=== PATIENT | male | born 1980 | race Hispanic/Latino ===

== ENCOUNTER 2022-11-04 05:04 | Inpatient (IN) | payer OTHER ==
[~2022-11-04] VITALS: Ht 185.4 cm; Wt 82.1 kg
[2022-11-04 05:39] LABS: BASOPHILS % (AUTO) 0.4 % (0.0-5.0); EOSINOPHILS % (AUTO) 2.2 % (0.0-8.0); HEMATOCRIT 40.2 % (42-54); LYMPHOCYTES % (AUTO) 32.4 % (21.0-51.0); MEAN CORPUSCULAR HEMOGLOBIN 29.5 pg (27.0-33.0); MEAN CORPUSCULAR HGB CONC 34.3 g/dL (32.0-36.0); MEAN CORPUSCULAR VOLUME 85.9 fL (79-99); MONOCYTES % (AUTO) 6.3 % (3.0-13.0); NEUTROPHILS % (AUTO) 58.2 % (40.0-77.0); PLATELET COUNT (AUTO) 292 K/uL (130-400); RED BLOOD CELL COUNT(AUTO) 4.68 MIL/uL (4.50-6.20); RED CELL DISTRIBUTION WIDTH 13.8 % (11.0-15.5); WHITE BLOOD COUNT (AUTO) 7.6 K/uL (4.8-10.8)
[2022-11-04 05:45] LABS: CREATININE 0.7 mg/dL (0.5-1.5); POTASSIUM 3.2 mmol/L (3.5-5.1)
[2022-11-04 05:52] LABS: ALBUMIN 3.2 g/dL (3.5-5.0); TOTAL PROTEIN, SERUM 5.7 g/dL (6.0-8.3)
[2022-11-04] MEDS ORDERED: IBUP-1493 PO (06:14)
[2022-11-04] MEDS ORDERED: ACETAMINOPHEN 325 MG TAB PO ONE (07:30)
[2022-11-04] MEDS ORDERED: POTASSIUM BICARB/CIT AC 25 MEQ TABLET.EFF PO ONE (07:30)
[2022-11-04] MEDS ORDERED: HYDROXYZINE 25 MG TABLET PO ONE (07:30)
[2022-11-04] MEDS ORDERED: ASPIRIN 325MG TAB PO ONE (07:30)
[2022-11-04] MEDS ORDERED: NITROGLYCERIN 0.4 MG SL TAB SL PRN ×2 (07:30→12:00)
[2022-11-04 07:49] LABS: AMPHET/METH SCREEN,URINE NEGATIVE (NEGATIVE); BARBITURATE SCREEN, URINE NEGATIVE (NEGATIVE); BENZODIAZEPINES SCREEN,URINE NEGATIVE (NEGATIVE); CANNABINOID SCREEN,URINE POSITIVE (NEGATIVE); COCAINE SCREEN,URINE NEGATIVE (NEGATIVE); OPIATE SCREEN,URINE NEGATIVE (NEGATIVE); PHENCYCLIDINE SCREEN,URINE NEGATIVE (NEGATIVE)
[2022-11-04 08:11] LABS: APPEARANCE,URINE CLEAR (CLEAR); BILIRUBIN,URINE NEGATIVE (NEGATIVE); COLOR,URINE LIGHT-YELLOW (YELLOW); GLUCOSE, URINE (UA) NEGATIVE (NEGATIVE); KETONES,URINE NEGATIVE (NEGATIVE); LEUKOCYTE ESTERASE ,URINE NEGATIVE Leu/uL (NEGATIVE); NITRATE,URINE NEGATIVE (NEGATIVE); OCCULT BLOOD,URINE NEGATIVE (NEGATIVE); PH,URINE 6.5 (5.0-8.0); PROTEIN,URINE NEGATIVE (NEGATIVE); UROBILINOGEN,URINE 0.2 mg/dL (0.2-1.0)
[2022-11-04] MEDS ORDERED: NITROGLYCERIN 1GM OINT 1 INCH/1GM TD ONE (08:30)
[2022-11-04] MEDS ORDERED: ENOXAPARIN SODIUM 80 MG/0.8 ML SQ ONE (08:30)
[2022-11-04] MEDS ORDERED: HYDRALAZINE 25MG TABLET PO PRN (12:00)
[2022-11-04] MEDS ORDERED: GUAIFENESIN SUGAR-FREE 100 MG/5 ML UDCUP PO PRN (12:00)
[2022-11-04] MEDS ORDERED: POTASSIUM CHLORIDE 10% ELIXIR 20 MEQ/15 ML UDCUP PO PRN (12:00)
[2022-11-04] MEDS ORDERED: ALBUTEROL 0.083% 2.5 MG/3 ML INH IH PRN (12:00)
[2022-11-04] MEDS ORDERED: DiphenhydrAMINE HCL 50 MG/ML VIAL IV PRN (12:00)
[2022-11-04] MEDS ORDERED: POLYETHYLENE GLYCOL 3350 17 GM POWD.PACK PO PRN (12:00)
[2022-11-04] MEDS ORDERED: KCL 20 MEQ ERTAB PO PRN (12:00)
[2022-11-04] MEDS ORDERED: POTASSIUM CHLORIDE 20MEQ/100ML 100 ML IV PRN ×2 (12:00)
[2022-11-04] MEDS ORDERED: LOPERAMIDE HCL 2 MG CAP PO PRN (12:00)
[2022-11-04] MEDS ORDERED: DOCUSATE SODIUM 100 MG CAP PO PRN (12:00)
[2022-11-04] MEDS ORDERED: ONDANSETRON 4MG INJ IV PRN (12:00)
[2022-11-04] MEDS ORDERED: DEXT30CA6 PO (15:29)
[2022-11-04] MEDS ORDERED: CLON1TAB12 PO (15:29)
[2022-11-04 15:35] VITALS: BP 118/62
[2022-11-04] MEDS: ALPRAZOLAM 0.5 MG TABLET PO PRN (15:39)
[2022-11-04] MEDS: ACETAMINOPHEN 325 MG TAB PO PRN ×2 (15:42→21:40)
[2022-11-04 16:30] VITALS: BP 128/67
[2022-11-04 20:02] VITALS: BP 143/88
[2022-11-04] MEDS: FAMOTIDINE 20MG TAB PO SCH (21:40)
[2022-11-04 23:05] VITALS: BP 145/86
[2022-11-05] MEDS: ALPRAZOLAM 0.5 MG TABLET PO PRN ×3 (00:08→20:21)
[2022-11-05] MEDS: ACETAMINOPHEN 325 MG TAB PO PRN ×3 (03:22→18:47)
[2022-11-05 04:00] VITALS: BP 135/78
[2022-11-05 06:13] LABS: ALBUMIN 3.7 g/dL (3.5-5.0); POTASSIUM 4.4 mmol/L (3.5-5.1); TOTAL PROTEIN, SERUM 6.5 g/dL (6.0-8.3)
[2022-11-05 08:00] VITALS: BP 140/97
[2022-11-05] MEDS: ASPIRIN 81MG CHEW TAB PO SCH (08:20)
[2022-11-05] MEDS: ENOXAPARIN SODIUM 40 MG/0.4 ML SYRINGE SQ SCH (08:20)
[2022-11-05] MEDS: FAMOTIDINE 20MG TAB PO SCH ×2 (08:20→20:21)
[2022-11-05 11:00] VITALS: BP 133/89
[2022-11-05 13:51] LABS: BASOPHILS % (AUTO) 0.3 % (0.0-5.0); EOSINOPHILS % (AUTO) 1.9 % (0.0-8.0); HEMATOCRIT 42.5 % (42-54); LYMPHOCYTES % (AUTO) 30.6 % (21.0-51.0); MEAN CORPUSCULAR HEMOGLOBIN 29.3 pg (27.0-33.0); MEAN CORPUSCULAR HGB CONC 32.9 g/dL (32.0-36.0); MEAN CORPUSCULAR VOLUME 88.9 fL (79-99); MONOCYTES % (AUTO) 6.8 % (3.0-13.0); NEUTROPHILS % (AUTO) 60.1 % (40.0-77.0); PLATELET COUNT (AUTO) 282 K/uL (130-400); RED BLOOD CELL COUNT(AUTO) 4.78 MIL/uL (4.50-6.20); RED CELL DISTRIBUTION WIDTH 14.1 % (11.0-15.5); WHITE BLOOD COUNT (AUTO) 7.8 K/uL (4.8-10.8)
[2022-11-05] MEDS ORDERED: LISINOPRIL 10 MG TABLET PO ONE (14:00)
[2022-11-05] MEDS ORDERED: DRONABINOL 2.5 MG CAP PO ONE (14:30)
[2022-11-05] MEDS ORDERED: POLYETHYLENE GLYCOL 3350 17 GM POWD.PACK PO ONE (14:32)
[2022-11-05 16:00] VITALS: BP 146/74
[2022-11-05 19:35] VITALS: BP 126/52
[2022-11-05 23:52] VITALS: BP 120/80
[2022-11-06 04:00] VITALS: BP 130/52
[2022-11-06 05:52] LABS: BASOPHILS % (AUTO) 0.8 % (0.0-5.0); EOSINOPHILS % (AUTO) 3.3 % (0.0-8.0); HEMATOCRIT 43.1 % (42-54); LYMPHOCYTES % (AUTO) 49.2 % (21.0-51.0); MEAN CORPUSCULAR HEMOGLOBIN 29.6 pg (27.0-33.0); MEAN CORPUSCULAR HGB CONC 33.9 g/dL (32.0-36.0); MEAN CORPUSCULAR VOLUME 87.4 fL (79-99); MONOCYTES % (AUTO) 7.4 % (3.0-13.0); PLATELET COUNT (AUTO) 294 K/uL (130-400); RED BLOOD CELL COUNT(AUTO) 4.93 MIL/uL (4.50-6.20); RED CELL DISTRIBUTION WIDTH 13.7 % (11.0-15.5); WHITE BLOOD COUNT (AUTO) 6.6 K/uL (4.8-10.8)
[2022-11-06 06:05] LABS: ALBUMIN 3.6 g/dL (3.5-5.0); CREATININE 0.9 mg/dL (0.5-1.5); TOTAL PROTEIN, SERUM 6.6 g/dL (6.0-8.3)
[2022-11-06 08:00] VITALS: BP_SYST 119; BP_SYST 139; BP_DIAS 61; BP_DIAS 89
[2022-11-06] MEDS: FAMOTIDINE 20MG TAB PO SCH (08:50)
[2022-11-06] MEDS: ALPRAZOLAM 0.5 MG TABLET PO PRN ×2 (08:50→15:39)
[2022-11-06] MEDS: ASPIRIN 81MG CHEW TAB PO SCH (08:50)
[2022-11-06] MEDS: ACETAMINOPHEN 325 MG TAB PO PRN (08:51)
[2022-11-06] MEDS: ENOXAPARIN SODIUM 40 MG/0.4 ML SYRINGE SQ SCH (08:51)
[2022-11-06] MEDS ORDERED: LISINOPRIL 10 MG TABLET PO SCH (09:00)
[2022-11-06] MEDS ORDERED: POLYETHYLENE GLYCOL 3350 17 GM POWD.PACK PO SCH (09:00)
[2022-11-06] MEDS ORDERED: FAMO20TA8 PO (11:27)
[2022-11-06] MEDS ORDERED: ASPI-1005 PO (11:27)
[2022-11-06] MEDS ORDERED: LISI10TA24 PO (11:27)
[2022-11-06 11:53] VITALS: BP 117/76
[2022-11-06] MEDS ORDERED: DOXY100C5 PO (12:40)
[2022-11-06 15:49] VITALS: BP 116/76
[2022-11-08 16:11] LABS: ROCKY MT SPOTTED FEVER IGG <1:64 (Neg:<1:64); ROCKY MT SPOTTED FEVER IGM <1:64 (Neg:<1:64); TYPHUS FEVER AB IGG <1:64 (Neg:<1:64); TYPHUS FEVER AB IGM <1:64 (Neg:<1:64)
== END 2022-11-06 15:44 | disposition home or self-care (01) | DRG 305 ==
LOC: EDH 05:04 → EDHIP 05:05 → OBSVTOIN 05:05 → 3BH 15:35
PROVIDERS: ADMIT Internal Medicine; ATTEND Internal Medicine
DX: I16.0 Hypertensive urgency (principal); F41.9 Anxiety disorder, unspecified; Z20.822 Contact with and (suspected) exposure to COVID-19; I10 Essential (primary) hypertension; F32.A Depression, unspecified
CPT/HCPCS: 36415; 70450; 71045; 80053; 80305; 81003; 84484; 85025; 86757; 87635; 87804; 93005; 93306; 93356; G0378; J1650; Q0167

== ENCOUNTER 2025-04-25 16:37 | Inpatient (IN) | payer SELFPAY ==
[~2025-04-25] VITALS: Ht 193 cm; Wt 80.7 kg
--- NOTE | 2025-04-25 17:44 | EKG ---
[facility] Test Date: 2025-04-25 Test Time: 17:38:55 Pat Name: SAFIA CAO Department: [facility] Room: 412 Gender: M Nurse Monitoring: 0699 : 1980 Requested By: RONALD SANDOVAL Order Number: [id number] Reading MD: Graham Cooper Measurements Intervals [place] Rate: 76 P: -13 MS: 122 QRS: -14 QRSD: 82 T: 53 QT: 373 QTc: 419 Interpretive Statements Sinus rhythm Compared to ECG 11/04/2022 05:07:48 Ventricular premature complex(es) no longer present Aberrant conduction of supraventricular beat(s) no longer present Electronically Signed On 04-26-2025 20:12:59 CLIENT PROJECT COORDINATOR by Graham Cooper Please click the below link to view image of tracing.
[2025-04-25 18:03] LABS: IMMATURE GRANULOCYTE ABSOLUTE 0.03 K/uL (0-1); NUCLEATED RED BLOOD CELLS 0.0 % (0.0-0.19); PLATELET COUNT (AUTO) 323 K/uL (130-400); RED BLOOD CELL COUNT(AUTO) 5.20 MIL/uL (4.50-6.20); RED CELL DISTRIBUTION WIDTH 12.7 % (11.0-15.5); WHITE BLOOD COUNT (AUTO) 8.7 K/uL (4.8-10.8)
[2025-04-25 18:11] LABS: CREATININE 0.9 mg/dL (0.5-1.3); GLOMERULAR FILTR. RATE CALC 108.0 mL/min (>90); GLUCOSE,RANDOM 100.0 mg/dL (70-105); SODIUM SERUM 139.0 mmol/L (136-145); UREA NITROGEN, BLOOD 13.0 mg/dL (7-18)
[2025-04-25 18:20] LABS: CREATINE KINASE, TOTAL 128.0 U/L (21-232)
--- NOTE | 2025-04-25 19:10 | HMCIMG ---
EXAM: CR Chest, 1 View. CLINICAL HISTORY: cp COMPARISON: None provided. FINDINGS: LUNGS: The lungs show no infiltrate or other acute finding. PLEURAL SPACES: No pleural effusion or pneumothorax. MEDIASTINUM: Cardiac size and mediastinal contours within normal limits. BONES: No aggressive appearing osseous lesion seen. IMPRESSION: No acute cardiopulmonary pathology is evident. /Regina
--- NOTE | 2025-04-25 21:32 | HP ---
History of Present Illness Reason for Visit: anxious History of Present Illness Mr. Adan is a 44-year-old male that was seen and examined today on 04/25/2025. Patient is a good historian of personal health Patient reports that he came to the emergency department with a chief complaint of anxiety. Onset is chronic. Duration is constant. Character is described as feeling anxious. There was no alleviating factors. Symptoms are aggravated by primary physician weaning off of benzodiazepines (clonazepam) which patient has been using chronically. Last dose was two weeks ago. Patient denies any associated suicidal or homicidal ideation. Today in the emergency department CBC unremarkable, chemistry unremarkable, no urinalysis has been collected or sent to lab. Emergency room physician recommended that patient be admitted with a diagnosis of intractable anxiety. Past Medical History ADDITIONAL PAST MEDICAL HISTORY: [ADD, anxiety] SOCIAL HISTORY: [Negative for smoking, alcohol use, patient admits to daily use of marijuana. Patient lives with his mom Beltran Emerson. Patient is typically independent of all his ADLs. Patient denies difficulty pain is bills] SURGICAL HISTORY: [Cholecystectomy] Review of Systems General: No Fever, No Chills, No Night Sweats, No Fatigue, No Malaise, No Appetite, No Other HEENT: No Head Aches, No Visual Changes, No Eye Pain, No Ear Pain, No Dysphasia, No Sinus Congestion, No Post Nasal Drip, No Sore Throat, No Other Pulmonary: No Dyspnea, No Cough, No Pleuritic Chest Pain, No Other Cardiovascular: No: Chest Pain, Palpitations, Orthopnea, Paroxysmal Noc. Dyspnea, Edema, Lt Headedness, Other Gastrointestinal: No: Nausea, Vomiting, Abdominal Pain, Diarrhea, Constipation, Melena, Hematochezia, Other Genitourinary: No Dysuria, No Frequency, No Incontinence, No Hematuria, No Retention, No Other Musculoskeletal: No: other, neck pain, shoulder pain, arm pain, back pain, hand pain, leg pain, foot pain Skin: No Urticaria, No Rash, No Other Neurological: No: Weakness, Numbness, Incoordination, Change in speech, Confusion, Seizures, Other Additional ROS Psychiatric: Positive anxiety Allergies: Coded Allergies: No Known Drug Allergies (Unverified Allergy, Unknown, 11/04/22) Scheduled Aspirin (Aspirin 81MG Chew Tab), 81 MG PO DAILY Doxycycline Hyclate (Doxycycline Hyclate), 100 MG PO BID Famotidine (Famotidine), 20 MG PO BID Ibuprofen (Motrin/Advil), 800 MG PO TID Lisinopril (Lisinopril), 10 MG PO DAILY Scheduled PRN Clonazepam (Clonazepam), 1 MG PO QIDP PRN for ANXIETY/AGITATION, (Reported) Dextroamphetamine/Amphetamine (Dextroamp-Amphet ER 30 mg Cap), 30 MG PO BID PRN for AGITATION, (Reported) Exam Vital Signs Vital Signs Date Time Temp Pulse Resp B/P (MAP) Pulse Ox O2 Delivery O2 Flow Rate FiO2 04/25/25 19:13 97.9 82 16 142/88 99 Room Air* 0 21 General Appearance: Alert, Oriented X3, Cooperative HEENT: Atraumatic, PERRLA Respiratory: Clear to auscultation, Normal air movement, NL respiratory effort Cardiovascular: Regular rate, Regular rhythm, Normal S1, Normal S2 Abdominal: Normal bowel sounds, Soft, No tenderness Extremities: No edema Skin: No significant lesion Neuro: Normal gait, Normal speech, Strength at 5/5 X4 ext, Sensation intact, Cranial nerves 3-12 NL Psych/Mental Status: Mental status NL, Mood NL, Thoughts/Content NL Assessment/Plan ASSESSMENT: [ Intractable anxiety, POA ADD] PLAN: [ Admit patient to medical floor as inpatient status. Place patient on telemetry monitoring. Start paroxetine 20 mg by mouth once daily. Start buspirone 7.5 mg by mouth twice daily. Administer buspirone 5 mg times 1 Consult tele psychiatry for evaluation and further recommendations Check urine drug screen, follow up with the results Check urinalysis, follow up with the results Consider resuming home medications once they have been reconciled At time of admission home medications have not been reconciled GI prophylaxis, famotidine DVT prophylaxis, Lovenox ADVANCED CARE PLANNING 1. Which of the following were discussed? Hospice Care - Yes Therapeutic options - yes Advance Directives - Yes - patient does not have any advance directives in place at this time, however his mother can make decisions for him if he becomes unable Other discussions - patient wishes to remain a full code at this time 2. Discussed with who? Patient 3. Voluntary nature of this service was explained to the patient? Yes 4. Amount of time spent - ___16 minutes____ 5. Reviewed by Physician? (if this service was performed by NPP) Yes This document was generated in part using voice recognition software, occasional wrong word or sound alike substitutions may have occurred due to the inherent limitations of voice recognition software. Read the chart carefully and recognize using context, where the substitutions have occurred. Although every effort was made to edit the content, senior enlisted advisor and typing errors may occur ATTESTATION BY PHYSICIAN I have seen and examined the patient. I reviewed the documentation, medical decision making, and treatment plan as noted by the mid-level provider above. I agree with the findings and plan of care. ] SUJATHA CHOU [facility] Apr 25, 2025 21:32
--- NOTE | 2025-04-25 21:39 | ERN ---
General Chief Complaint: Anxiety/Panic Attack Stated Complaint: ANXIETY, OUT OF ANXIETY MEDS Time Seen by MD: 16:42 Time Seen by Midlevel: 16:42 Source: patient History of Present Illness Initial Comments Patient reports that he came to the emergency department with a chief complaint of anxiety. Symptoms are aggravated by primary physician weaning off of benzodiazepines (clonazepam) which patient has been using chronically. Last dose was two weeks ago. Patient denies any associated suicidal or homicidal ideation. Allergies: Coded Allergies: No Known Drug Allergies (Unverified Allergy, Unknown, 11/04/22) Home Meds Reported Medications Dextroamphetamine/Amphetamine (Dextroamp-Amphet ER 30 mg Cap) 30 Mg Cap.er.24h, 30 MG PO BID PRN for AGITATION, CAPSULE. 11/04/22 Clonazepam (Clonazepam) 1 Mg Tablet, 1 MG PO TIDP PRN for ANXIETY/AGITATION, TAB 11/04/22 Discontinued Scripts Doxycycline Hyclate (Doxycycline Hyclate) 100 Mg Capsule, 100 MG PO BID, #10 CAP Prov:ÁNGEL CRUZ ROD BUSTER HELPER 11/06/22 Lisinopril (Lisinopril) 10 Mg Tablet, 10 MG PO DAILY, #30 TAB 0 Refills Prov:ÁNGEL CRUZ ROD BUSTER HELPER 11/06/22 Famotidine (Famotidine) 20 Mg Tablet, 20 MG PO BID, #30 TAB Prov:ÁNGEL CRUZ ROD BUSTER HELPER 11/06/22 Aspirin (ASPIRIN 81MG CHEW TAB) 81 Mg Tab.chew, 81 MG PO DAILY, #30 TAB.CHEW Prov:ÁNGEL CRUZ ROD BUSTER HELPER 11/06/22 Ibuprofen (Motrin/Advil) 800 Mg Tab, 800 MG PO TID, #30 TAB Prov:HEMANT DRUMMOND MD 11/04/22 Past Medical History Past Medical History: Anxiety, Depression Medical History Other: ADD Past Surgical History: Cholecystectomy Family History Family History: Negative Social History Social History: Negative, Lives with family ROS Dictation CONSTITUTIONAL: Negative except for HPI HEAD/FACE: Negative except for HPI EENT: Negative except for HPI RESPIRATORY: Negative except for HPI GASTROINTESTINAL/ABDOMINAL: Negative except for HPI GENITOURINARY: Negative except for HPI MUSCULOSKELETAL: Negative except for HPI INTEGUMENTARY: Negative except for HPI NEUROLOGICAL/PSYCH: Negative except for HPI HEMATOLOGIC/LYMPHATIC: Negative except for HPI All Systems Negative, Except as noted above. 13 point review of systems assessed and all negative except for above. Physical Exam Physical Exam Dictation Vital Signs reviewed General Appearance: Alert, oriented x 3, appears visibly agitated and irritable Head and Face: non-traumatic. Eyes: PERRL, pink conjunctivas, eyelid no trauma, anterior chamber with arcus senilis. Ears: Pinnas intact and no signs of trauma or erythema ear canals clear and no discharge TM no erythema Nose: No discharge, no bleeding. Oropharynx: Mouth normal, tongue pink, pharynx clear,no erythema, tonsils no exudates, no abscesses noted, mucous membrane moist Neck: Supple, non-tender, no thyromegaly, no masses, no JVD, no bruits Breast:Deferred Chest:No tenderness, no crepitus, no paradoxical movement, no retractions Lungs:Clear, well-ventilated, symmetric, no rales, no wheezing, no rhonchi, no stridor, good breath sounds bilaterally Heart: Regular rate, regular rhythm, no murmur, no gallops Vascular: no peripheral edema, Abdomen: Soft, positive bowel sounds, nondistended, no guarding, nontender, no rebound, no masses no hepatomegaly, no splenomegaly, no Llanos's sign, no hernias. Rectal: Deferred Genital: Deferred Neurological: Normal speech, motor function intact, sensory function intact Musculoskeletal: Neck nontender, full range of motion, back nontender, full range of motion, Extremities: nontender, full range of motion Skin: Color pink, dry, no turgor, no rash, no lacerations, no abrasions, no contusions. Lymphatic: Deferred Results Laboratory and Microbiology Lab and Micro Result MDM Being management MDM: Differential diagnosis: Benzodiazepine withdrawal, anxiety, medication reaction Rationale: Tests considered and ordered secondary to shared decision making include: Previous outside records reviewed: Old ER visits. Risk of complication and/or morbidity or mortality of patient management: None Medications-Per medication reconciliation Need for hospitalization: Patient does meet criteria for hospitalization. Need for emergency major/minor surgery: No There are no social concerns with this patient. Prescription drug management Prescriptions will include symptomatic care Patient's prior external medical records from other ER visits were reviewed by me as indicated. Prior testing and results from previous visits were reviewed. Prior tests were taken into account with medical decision making and resource utilization, independent historian/historians were used to obtain complete medical history. I independently interpreted the test that were performed, results were reviewed by me and considered findings on radiology if ordered. Medical management and examination interpretation discussions were had by me with other qualified healthcare professionals as indicated for the patient's care. ED Course DX & DISP Disposition: Inpatient Departure Impression: Primary Impression: Anxiety Condition: Stable Referrals: BRITTANIE GOSS MD (Family) I have reviewed the case, and I agree with, Diagnosis and Plan I performed the substantive portion of the visit. I have reviewed and personally made and approve the management plan that is documented in the note by myself or the FRANCHESKA. I acknowledge for responsibility for the patient's managem ent plan. RONALD SANDOVAL PAC Apr 25, 2025 21:39
--- NOTE | 2025-04-25 21:42 | NUR ---
REPORT RECEIVED FROM ALONSO ORDONEZ. PATIENT MOVED TO ER02. PATIENT CARE ASSUMED AT THIS TIME.
[2025-04-25] MEDS ORDERED: NICOTINE 14 MG/ 24 HR PATCH TD PRN (22:00)
[2025-04-25] MEDS ORDERED: LACTULOSE 20 GM/30 ML UDCUP PO PRN (23:30)
[2025-04-26] VITALS (8 sets, daily range): BP systolic 134–158; BP diastolic 77–109; PULSE 68–85; RESP 16–22; TEMP 97–98.2; O2SAT 98–100
[2025-04-26 00:16] LABS: ADD UA MICROSCOPIC YES; APPEARANCE,URINE CLOUDY (CLEAR); GLUCOSE, URINE (UA) NEGATIVE (NEGATIVE); LEUKOCYTE ESTERASE ,URINE NEGATIVE Leu/uL (NEGATIVE); NITRATE,URINE NEGATIVE (NEGATIVE); OCCULT BLOOD,URINE NEGATIVE (NEGATIVE)
[2025-04-26 00:23] LABS: AMPHET/METH SCREEN,URINE POSITIVE (NEGATIVE); BARBITURATE SCREEN, URINE NEGATIVE (NEGATIVE); CANNABINOID SCREEN,URINE POSITIVE (NEGATIVE); COCAINE SCREEN,URINE NEGATIVE (NEGATIVE)
[2025-04-26 00:31] LABS: CALCIUM OXALATE CRYSTALS,UR RARE /LPF (None Seen); SQUAMOUS EPITHELIAL CELL,UR RARE /HPF (0-2)
[2025-04-26 06:01] LABS: IMMATURE GRANULOCYTE ABSOLUTE 0.03 K/uL (0-1); NUCLEATED RED BLOOD CELLS 0.0 % (0.0-0.19); PLATELET COUNT (AUTO) 311 K/uL (130-400); RED BLOOD CELL COUNT(AUTO) 4.89 MIL/uL (4.50-6.20); RED CELL DISTRIBUTION WIDTH 12.5 % (11.0-15.5); WHITE BLOOD COUNT (AUTO) 7.4 K/uL (4.8-10.8)
[2025-04-26 06:18] LABS: CREATININE 0.8 mg/dL (0.5-1.3); GLOMERULAR FILTR. RATE CALC 112.0 mL/min (>90); GLUCOSE,RANDOM 104.0 mg/dL (70-105); PHOSPHORUS 3.5 mg/dL (2.5-4.9); SODIUM SERUM 141.0 mmol/L (136-145); UREA NITROGEN, BLOOD 13.0 mg/dL (7-18)
[2025-04-26] MEDS: FAMOTIDINE 20MG TAB PO SCH (08:08)
[2025-04-26] MEDS: ENOXAPARIN SODIUM 40 MG/0.4 ML SYRINGE SQ SCH (08:09)
--- NOTE | 2025-04-26 09:36 | NUR ---
DCP:HOME Pt currently lives at home with his mom. Pt denied any DME, home health, or provider services. Pt states that he is able to complete ADLs independently. PCP is Dr. Crain and uses [facility] for any RX needs. At DC pt will want to go home and family can assist with transportation.
--- NOTE | 2025-04-26 12:30 | NUR ---
GAVE REPORT TO ALOK ORDONEZ, PATIENT WAS TAKEN UP VIA ER BED. PATIENT IN STABLE CONDITION NO COMPLAINTS OF PAIN AT THIS TIME.
--- NOTE | 2025-04-26 13:16 | CONS ---
CONSULT NOTE: Reason for consult: intractable anxiety Reason for medical admission: Patient reports that he came to the emergency department with a chief complaint of anxiety. Onset is chronic. Duration is constant. Character is described as feeling anxious. There was no alleviating factors. Symptoms are aggravated by primary physician weaning off of benzodiazepines (clonazepam) which patient has been using chronically. Last dose was two weeks ago. Patient denies any associated suicidal or homicidal ideation. Today in the emergency department CBC unremarkable, chemistry unremarkable, no urinalysis has been collected or sent to lab. Emergency room physician recommended that patient be admitted with a diagnosis of intractable anxiety. UDS + for amphetamines and THC CC: "better than I was yesterday" HPI: Patient states that he and his doctor agreed for him to stop taking his Klonopin. His provider wanted him to get off of the Klonopin and not be on a controlled substance chronically. Patient has been on Klonopin 2-6 mg daily for the past 20 years. Most recently, he was taking 2 mg daily. The Klonopin was stopped abruptly stopped and after stopping the Klonopin he experienced withdrawal. He felt like he wanted to smoke cigarettes, he was shaking, sweating, chest tightness, palpitation, 9/10 anxiety, panic attacks, insomnia, poor appetite. He reports he also had mood fluctuations and irritability. Patient also struggles with sadness and depression due to a family situation. He denied current or recent SI. He denied hx of SI or suicide attempts. He denied AVH and paranoia. He has not taken Adderall in a few days. He took some Buspar today and "didn't feel anything." The Buspar is a new medication for him. He was not taking Paxil prior to coming to the hospital. He does not like the SSRIs due to them taking a long time to work. He would rather take a benzo that works immediately. Patient says the withdrawal improved when he was given IV morphine. He was seeing a PCP for his psych medications. He says he tries to use coping skills and change his diet. He uses cigarettes. He has tried stopping caffeine. He tries to see his chldren to distract him. He does think some of these interventions are help. Patient uses THC daily. He smokes about 1/2 ppd. He does not drink alcohol often. Patient sees a therapist, once or twice weekly. He open to psychiatry referral. He is agreeable to continue Buspar and add some Gabapentin. Current psychiatric medications: Buspar, Paxil, Adderall 30 mg BID PRN for agitation? Recently taking off of Klonopin 1 mg BID, last dose was 2 weeks ago. Vital Signs Date Time Temp Pulse Resp B/P (MAP) Pulse Ox O2 Delivery O2 Flow Rate FiO2 04/26/25 12:00 98.2 78 16 134/77 100 Room Air 0.0 04/26/25 01:30 21 Laboratory Tests Test 04/25/25 17:48 04/26/25 00:08 04/26/25 05:40 White Blood Count 8.7 K/uL (4.8-10.8) 7.4 K/uL (4.8-10.8) Red Blood Count 5.20 MIL/uL (4.50-6.20) 4.89 MIL/uL (4.50-6.20) Hemoglobin 15.3 g/dL (14.0-18.0) 14.8 g/dL (14.0-18.0) Hematocrit 47.2 % (42-54) 43.4 % (42-54) Mean Corpuscular Volume 90.8 fL (79-99) 88.8 fL (79-99) Mean Corpuscular Hemoglobin 29.4 pg (27.0-33.0) 30.3 pg (27.0-33.0) Mean Corpuscular Hemoglobin Concent 32.4 g/dL (32.0-36.0) 34.1 g/dL (32.0-36.0) Red Cell Distribution Width 12.7 % (11.0-15.5) 12.5 % (11.0-15.5) Platelet Count 323 K/uL (130-400) 311 K/uL (130-400) Mean Platelet Volume 9.9 fL (7.5-10.5) 10.2 fL (7.5-10.5) Immature Granulocyte % (Auto) 0.3 % (0-1) 0.4 % (0-1) Neutrophils (%) (Auto) 59.0 % (40.0-77.0) 60.1 % (40.0-77.0) Lymphocytes (%) (Auto) 32.6 % (21.0-51.0) 30.2 % (21.0-51.0) Monocytes (%) (Auto) 6.8 % (3.0-13.0) 7.0 % (3.0-13.0) Eosinophils (%) (Auto) 1.1 % (0.0-8.0) 2.0 % (0.0-8.0) Basophils (%) (Auto) 0.2 % (0.0-5.0) 0.3 % (0.0-5.0) Neutrophils # (Auto) 5.1 K/uL (1.8-7.7) 4.5 K/uL (1.8-7.7) Lymphocytes # (Auto) 2.9 K/uL (1.0-4.8) 2.2 K/uL (1.0-4.8) Monocytes # (Auto) 0.6 K/uL (0.1-1.0) 0.5 K/uL (0.1-1.0) Eosinophils # (Auto) 0.10 K/uL (0.00-0.70) 0.15 K/uL (0.00-0.70) Basophils # (Auto) 0.02 K/uL (0.00-0.20) 0.02 K/uL (0.00-0.20) Absolute Immature Granulocyte (auto 0.03 K/uL (0-1) 0.03 K/uL (0-1) Nucleated Red Blood Cells 0.0 % (0.0-0.19) 0.0 % (0.0-0.19) Sodium Level 139 mmol/L (136-145) 141 mmol/L (136-145) Potassium Level 3.8 mmol/L (3.5-5.1) 4.3 mmol/L (3.5-5.1) Chloride Level 99 mmol/L (101-111) L 102 mmol/L (101-111) Carbon Dioxide Level 30 mmol/L (21-32) 29 mmol/L (21-32) Blood Urea Nitrogen 13 mg/dL (7-18) 13 mg/dL (7-18) Creatinine 0.9 mg/dL (0.5-1.3) 0.8 mg/dL (0.5-1.3) Glomerular Filtration Rate Calc 108 mL/min (>90) 112 mL/min (>90) Random Glucose 100 mg/dL (70-105) 104 mg/dL (70-105) Total Calcium 9.5 mg/dL (8.5-10.1) 9.3 mg/dL (8.5-10.1) Magnesium Level 2.40 mg/dL (1.80-2.40) 2.40 mg/dL (1.80-2.40) Total Creatine Kinase 128 U/L (21-232) Troponin I High Sensitivity 6 ng/L (4-75) Urine Color YELLOW (YELLOW) Urine Appearance CLOUDY (CLEAR) H Urine pH 6.0 (5.0-8.0) Urine Specific [place] 1.033 (1.001-1.031) Urine Protein 30 mg/dL (NEGATIVE) H Urine Glucose (UA) NEGATIVE mg/dL (NEGATIVE) Urine Ketones 40 mg/dL (NEGATIVE) H Urine Occult Blood NEGATIVE (NEGATIVE) Urine Nitrate NEGATIVE (NEGATIVE) Urine Bilirubin NEGATIVE mg/dL (NEGATIVE) Urine Urobilinogen 0.2 mg/dL (0.2-1.0) Urine Leukocyte Esterase NEGATIVE [place]/uL Urine RBC 2-5 /HPF (0-1) H Urine WBC 2-5 /HPF (0-1) H Urine Squamous Epithelial Cells RARE /HPF (0-2) Urine Calcium Oxalate Crystals RARE /LPF (None Seen) Urine Bacteria None /HPF (None Seen) Urine Opiates Screen NEGATIVE (NEGATIVE) Urine Barbiturates Screen NEGATIVE (NEGATIVE) Urine Phencyclidine Screen NEGATIVE (NEGATIVE) Urine Amphetamines Screen POSITIVE (NEGATIVE) H Urine Benzodiazepines Screen NEGATIVE (NEGATIVE) Urine Cocaine Screen NEGATIVE (NEGATIVE) Urine Marijuana (THC) Screen POSITIVE (NEGATIVE) H Phosphorus Level 3.5 mg/dL (2.5-4.9) Current Medications Medications Dose Ordered Sig/Meryl Start Time Stop Time Status Last Admin Buspirone HCl 5 mg BID 04/26/25 09:00 05/26/25 08:59 04/26/25 08:08 Paroxetine HCl 20 mg Q24H 04/25/25 21:30 05/25/25 21:29 04/25/25 23:03 Nicotine 14 mg ONCE PRN 04/25/25 22:00 05/25/25 21:59 Acetaminophen 650 mg Q6H PRN 04/25/25 23:30 05/25/25 23:29 Enoxaparin Sodium 40 mg DAILY 04/26/25 09:00 05/26/25 08:59 04/26/25 08:09 Famotidine 20 mg DAILY 04/26/25 09:00 05/26/25 08:59 04/26/25 08:08 Hydralazine HCl 10 mg Q6H PRN 04/25/25 23:30 05/25/25 23:29 Lactulose 20 gm BID PRN 04/25/25 23:30 05/25/25 23:29 Morphine Sulfate 2 mg Q4H PRN 04/25/25 23:30 05/02/25 23:29 04/26/25 10:30 Ondansetron HCl 4 mg Q6H PRN 04/25/25 23:30 05/25/25 23:29 04/26/25 02:22 MSE: Patient is a 44 yo white male. He is alert and oriented x 3, NAD. Eye contact is intermittent. Speech is fluent. Gait is not evaluated. Grooming is appropriate. No AIMS or psychomotor disturbances. Mood is "better than yesterday" and affect is neutral, a bit odd, reactive. Thought process is linear and goal directed. Thought content is negative for SI, HI, AVH. Memory and cognition are grossly intact. Insight and judgment are fair. Assessment: Sedative hypnotic depencence and post-acute withdrawal Anxiety w/ panic attacks Nicotine dependence Cannabis abuse Recommendations: -Patient is not currently suicidal, homicidal or psychotic and he does not require inpatient psychiatric admission at this time. -Recommend stopping Adderall as this likely contributes to his anxiety -Stop Paxil as eugene was not taking it and he doesn't like SSRIs -Strongly discourage additional use/prescribing of benzos -Consider Gabapentin to help wth PAWS and manage anxiety, given his very high benzo dosing he will likely need 300 mg TID -Continue Buspar and increase ot 10 mg TID -For insomnia consider Trazodone or Remeron -Strongly discourage use of benzos, Z drugs or narcotic pain medications given patient's hx of heavy benzo use and desire for "quick fix" medications -Please make referral to outpatient psychiatry. He already has a therapist. -Psychiatry signing off. *20 mins was spent [id number] with patient and 25 mins was spent on chart re view and documentation GERALD OROZCO DO Apr 26, 2025 13:16
--- NOTE | 2025-04-26 14:36 | PN ---
[facility] PROGRESS NOTE Date of Service: Apr 26, 2025 Time of Service: 14:36 SUBJECTIVE: Mr. Cao is a 44-year-old male with a past medical history of anxiety, depression, ADD came in complaining of anxiety. Symptoms started after his primary care physician stopped his benzodiazepines (clonazepam) which he was previously on. In ED patient's CBC, BNP were unremarkable. Patient being admitted for acute anxiety. 04/26/2025: Patient was seen in ED room 2 without any family present. Patient was alert awake and oriented x3. Urinalysis has been ordered, it came back negative. Patient's chest x-ray came back normal without any acute cardiopulmonary pathology. Patient's toxicology came back positive for amphetamines and marijuana, patient on amphetamines for his ADD. psychiatric consult has been placed and they recommended to stopped his Adderall as this will likely contribute to his anxiety, strongly discouraged additional use,/prescribing benzos, they also believe the patient is not currently suicidal, homicidal or psychotic and he does not require inpatient psychiatric admission at this time. They advised to consider gabapentin to help with PAWS and manage anxiety, given his very high benzos dosing he will likely need 300 mg t.i.d., they also wanted to continue Buspar and increase it to 10 mg t.i.d., consider trazodone or Remeron for insomnia. They also recommended to make referral to outpatient psychiatry and signed off. We are going to start the patient on the recommended medication and see how he is doing before discharging him tomorrow REVIEW OF SYSTEMS CONSTITUTIONAL: Denies fevers, chills, or night sweats. No unintentional weight loss reported. NEUROLOGICAL: Denies headache, motor weakness, sensory deficit, vertigo/spinning sensation, gait abnormalities, or tremors. ENT: No hearing loss, rhinitis, rhinorrhea, hoarseness, or sore throat. CARDIOVASCULAR: Denies any exertional angina, dyspnea on exertion, orthopnea, paroxysmal nocturnal dyspnea, palpitations PULMONARY: Denies any shortness of breath, cough, phlegm/sputum, hemoptysis, pleuritic chest pain. GASTROINTESTINAL: Denies any type of dysphagia to either liquids or solids. Denies nausea, vomiting, abdominal pain, diarrhea, constipation, or changes in stool consistency or caliber. GENITOURINARY: Denies frequency, urgency, nocturia, hematuria or incontinence. ENDOCRINOLOGIC: Denies polyuria, polydipsia, polyphagia or heat/cold intolerances. DERMATOLOGIC: Denies rashes or pruritus. PHYSICAL EXAM GENERAL APPEARANCE: The patient is awake, alert, and oriented, in no acute cardiopulmonary distress. NEUROLOGICAL: No sensory deficits. HEENT: Face is symmetric. Pupils are equal and reactive. Extraocular movements are intact. NECK: Supple. No JVD. No thyromegaly. No lymphadenopathy. CHEST: Normal chest expansion. No Telemetry. LUNGS: Absence of any rales, rhonchi or any wheezing. CARDIOVASCULAR: Regular. S1 and S2 normal. No appreciable rubs, murmurs or gallops. ABDOMEN: Soft, nontender, and nondistended. There is no rebound, voluntary guarding, or rigidity. : Deferred. No Hunt. EXTREMITIES: Non-edematous and not cyanotic. No clubbing. Good capillary refill. SKIN: No skin breakdown. Vital Signs (last 8hr) Date Time Temp Pulse Resp B/P (MAP) Pulse Ox O2 Delivery O2 Flow Rate FiO2 04/26/25 13:15 98.1 81 22 152/101 96 Room Air 04/26/25 12:00 98.2 78 16 134/77 100 Room Air 0.0 04/26/25 08:00 98.1 85 20 142/88 99 Room Air 04/26/25 08:00 99 Room Air* 0 21 LABS: Laboratory: Test 04/26/25 05:40 04/26/25 00:08 04/25/25 17:48 Range/Units White Blood Count 7.4 4.8-10.8 K/uL Red Blood Count 4.89 4.50-6.20 MIL/uL Hemoglobin 14.8 14.0-18.0 g/dL Hematocrit 43.4 42-54 % Mean Corpuscular Volume 88.8 79-99 fL Mean Corpuscular Hemoglobin 30.3 27.0-33.0 pg Mean Corpuscular Hemoglobin Concent 34.1 32.0-36.0 g/dL Red Cell Distribution Width 12.5 11.0-15.5 % Platelet Count 311 130-400 K/uL Mean Platelet Volume 10.2 7.5-10.5 fL Immature Granulocyte % (Auto) 0.4 0-1 % Neutrophils (%) (Auto) 60.1 40.0-77.0 % Lymphocytes (%) (Auto) 30.2 21.0-51.0 % Monocytes (%) (Auto) 7.0 3.0-13.0 % Eosinophils (%) (Auto) 2.0 0.0-8.0 % Basophils (%) (Auto) 0.3 0.0-5.0 % Neutrophils # (Auto) 4.5 1.8-7.7 K/uL Lymphocytes # (Auto) 2.2 1.0-4.8 K/uL Monocytes # (Auto) 0.5 0.1-1.0 K/uL Eosinophils # (Auto) 0.15 0.00-0.70 K/uL Basophils # (Auto) 0.02 0.00-0.20 K/uL Absolute Immature Granulocyte (auto 0.03 0-1 K/uL Nucleated Red Blood Cells 0.0 0.0-0.19 % Sodium Level 141 136-145 mmol/L Potassium Level 4.3 3.5-5.1 mmol/L Chloride Level 102 101-111 mmol/L Carbon Dioxide Level 29 21-32 mmol/L Blood Urea Nitrogen 13 7-18 mg/dL Creatinine 0.8 0.5-1.3 mg/dL Glomerular Filtration Rate Calc 112 >90 mL/min Random Glucose 104 70-105 mg/dL Total Calcium 9.3 8.5-10.1 mg/dL Phosphorus Level 3.5 2.5-4.9 mg/dL Magnesium Level 2.40 1.80-2.40 mg/dL Urine Color YELLOW YELLOW Urine Appearance CLOUDY H CLEAR Urine pH 6.0 5.0-8.0 Urine Specific [place] 1.033 H 1.001-1.031 Urine Protein 30 H NEGATIVE mg/dL Urine Glucose (UA) NEGATIVE NEGATIVE mg/dL Urine Ketones 40 H NEGATIVE mg/dL Urine Occult Blood NEGATIVE NEGATIVE Urine Nitrate NEGATIVE NEGATIVE Urine Bilirubin NEGATIVE NEGATIVE mg/dL Urine Urobilinogen 0.2 0.2-1.0 mg/dL Urine Leukocyte Esterase NEGATIVE NEGATIVE [place]/uL Urine RBC 2-5 H 0-1 /HPF Urine WBC 2-5 H 0-1 /HPF Urine Squamous Epithelial Cells RARE 0-2 /HPF Urine Calcium Oxalate Crystals RARE None Seen /LPF Urine Bacteria None None Seen /HPF Urine Opiates Screen NEGATIVE NEGATIVE Urine Barbiturates Screen NEGATIVE NEGATIVE Urine Phencyclidine Screen NEGATIVE NEGATIVE Urine Amphetamines Screen POSITIVE H NEGATIVE Urine Benzodiazepines Screen NEGATIVE NEGATIVE Urine Cocaine Screen NEGATIVE NEGATIVE Urine Marijuana (THC) Screen POSITIVE H NEGATIVE Total Creatine Kinase 128 21-232 U/L Troponin I High Sensitivity 6 4-75 ng/L Current Medications Medications (Trade) Dose Ordered Sig/Meryl Route PRN Reason Start Time Stop Time Status Last Admin Dose Admin Acetaminophen (TYLenol 325MG TAB) 650 mg Q6H PRN PO TEMPERATURE GREATER THAN 101.5 04/25/25 23:30 05/25/25 23:29 Buspirone HCl (BUspar) 5 mg BID PO 04/26/25 09:00 05/26/25 08:59 04/26/25 08:08 5 MG Buspirone HCl (BUspar) 7.5 mg BID PO 04/26/25 09:00 04/26/25 02:30 DC Enoxaparin Sodium (Lovenox) 40 mg DAILY SQ 04/26/25 09:00 05/26/25 08:59 04/26/25 08:09 40 MG Famotidine (Pepcid 20mg Tab) 20 mg DAILY PO 04/26/25 09:00 05/26/25 08:59 04/26/25 08:08 20 MG Hydralazine HCl (APRESOLine 20MG INJ) 10 mg Q6H PRN IV For:SBP above 160;DBP above 90 04/25/25 23:30 05/25/25 23:29 Lactulose (Constulose 20gm/ 30ml Udcup) 20 gm BID PRN PO CONSTIPATION 04/25/25 23:30 05/25/25 23:29 Morphine Sulfate (morPHINE 4MG SYG) 2 mg Q4H PRN IVP SEVERE PAIN (7-10) 04/25/25 23:30 05/02/25 23:29 04/26/25 10:30 2 MG Nicotine (Nicoderm) 14 mg ONCE PRN TD AGITATION/INSOMNIA 04/25/25 22:00 05/25/25 21:59 Ondansetron HCl (zoFRAN 4MG INJ) 4 mg Q6H PRN IV NAUSEA/VOMITING 04/25/25 23:30 05/25/25 23:29 04/26/25 02:22 4 MG Ondansetron HCl (zoFRAN 4MG INJ) 4 mg Q6H PRN IVP NAUSEA/VOMITING 04/26/25 02:30 04/26/25 02:18 DC Paroxetine HCl (PAxil 20 MG TABLET) 20 mg Q24H PO 04/25/25 21:30 05/25/25 21:29 04/25/25 23:03 20 MG DIAGNOSTICS / RADIOLOGY: [facility] [address] [place] [address] IMAGING REPORT Signed PATIENT: SAFIA CAO MR#: [id number] : 1980 SEX: M AGE: 44 LOCATION: [facility] ORDER 37 STATUS: REG ER REPORT#: [id number] SERVICE 36 REASON: cp ORDERING PHYSICIAN: RONALD SANDOVAL PAC PROCEDURE: CXR1VW - CHEST 1VW EXAM: CR Chest, 1 View. CLINICAL HISTORY: cp COMPARISON: None provided. FINDINGS: LUNGS: The lungs show no infiltrate or other acute finding. PLEURAL SPACES: No pleural effusion or pneumothorax. MEDIASTINUM: Cardiac size and mediastinal contours within normal limits. BONES: No aggressive appearing osseous lesion seen. IMPRESSION: No acute cardiopulmonary pathology is evident. /[place] DICTATED BY: PARKER ESTEBAN MD DATE: 04/25/252009 ELECTRONICALLY SIGNED BY: PARKER ESTEBAN MD DATE: 04/25/252009 ASSESSMENT: Sedative hypnotic depencence and post-acute withdrawal Anxiety w/ panic attacks Nicotine dependence Cannabis abuse ADHD on Adderall PLAN: Sedative hypnotic depencence and post-acute withdrawal Anxiety w/ panic attacks: * Starting the patient on gabapentin to help with PAWS and manage anxiety 300 mg t.i.d., increase Buspar it to 10 mg t.i.d., and consider trazodone or Remeron for insomnia. * No additional use/prescribing of benzos ATTESTATION BY PHYSICIAN I have seen and examined the patient. I reviewed the documentation, medical decision making, and treatment plan as noted by the resident physician above. I agree with the findings and plan of care. RAZA STEVEN MD, ABHINAV MD Apr 26, 2025 14:36
[2025-04-26] MEDS: GABAPENTIN 300 MG CAPSULE PO SCH (14:52)
[2025-04-27] VITALS: BP 113/73; PULSE 60; RESP 18; TEMP 97.3
[2025-04-27 04:00] VITALS: BP 115/80; PULSE 59; RESP 18; TEMP 97.9
[2025-04-27 04:05] LABS: NUCLEATED RED BLOOD CELLS 0.0 % (0.0-0.19); PLATELET COUNT (AUTO) 280.0 K/uL (130-400); RED BLOOD CELL COUNT(AUTO) 4.81 MIL/uL (4.50-6.20); RED CELL DISTRIBUTION WIDTH 12.5 % (11.0-15.5); WHITE BLOOD COUNT (AUTO) 6.6 K/uL (4.8-10.8)
[2025-04-27 04:16] LABS: CREATININE 1.0 mg/dL (0.5-1.3); GLOMERULAR FILTR. RATE CALC 95.0 mL/min (>90); GLUCOSE,RANDOM 98.0 mg/dL (70-105); SODIUM SERUM 141.0 mmol/L (136-145); UREA NITROGEN, BLOOD 12.0 mg/dL (7-18)
[2025-04-27 07:34] LABS: ASPARTATE AMINOTRANSFERASE 18.0 U/L (10-37); TOTAL PROTEIN, SERUM 7.0 g/dL (6.0-8.3)
[2025-04-27 07:41] VITALS: BP 109/72; PULSE 71; RESP 18; TEMP 97.9
[2025-04-27 08:40] VITALS: O2SAT 98
[2025-04-27] MEDS: NICOTINE 14 MG/ 24 HR PATCH TD SCH (09:21)
[2025-04-27 11:50] VITALS: BP 120/82; PULSE 72; RESP 19; TEMP 97.9
--- NOTE | 2025-04-27 14:21 | DS ---
Discharge Summary Hospital Course Summary: Mr. Cao is a 44-year-old male with a past medical history of anxiety, depression, ADD came in complaining of anxiety. Symptoms started after his primary care physician stopped his benzodiazepines (clonazepam) which he was previously on. In ED patient's CBC, BNP were unremarkable. Patient being admitted for acute anxiety. Patient is seen in ED room to after admission, he was alert awake and oriented x3. Urinalysis has been ordered, it came back negative. Patient's chest x-ray came back normal without any acute cardiopulmonary pathology. Patient's toxicology came back positive for amphetamines and marijuana, patient on amphetamines for his ADD. Psychiatric consult has been placed and they recommended to stopped his Adderall as this will likely contribute to his anxiety, strongly discouraged additional use,/prescribing benzos, they also believe the patient is not currently suicidal, homicidal or psychotic and he does not require inpatient psychiatric admission at this time. They advised to consider gabapentin to help with PAWS and manage anxiety, given his very high benzos dosing he will likely need 300 mg t.i.d., they also wanted to continue Buspar and increase it to 10 mg t.i.d., consider trazodone or Remeron for insomnia. They also recommended to make referral to outpatient psychiatry and signed off. Started the patient on the above recommended medication, he did not have any complaints or concerns and was able to tolerate the new medication. Patient did complain of stomach ache in the morning which could be due to hunger or because he has not received is nicotine patch. So ordered a nicotine patch. Patient is also getting gabapentin on discharge. Discharging the patient at this time with the recommendation to follow up with the psychiatrist and PCP. Joint Maker Machine(s): Psychiatry - GERALD OROZCO DO - -Patient is not currently suicidal, homicidal or psychotic and he does not require inpatient psychiatric admission at this time. -Recommend stopping Adderall as this likely contributes to his anxiety -Stop Paxil as eugene was not taking it and he doesn't like SSRIs -Strongly discourage additional use/prescribing of benzos -Consider Gabapentin to help wth PAWS and manage anxiety, given his very high benzo dosing he will likely need 300 mg TID -Continue Buspar and increase ot 10 mg TID -For insomnia consider Trazodone or Remeron -Strongly discourage use of benzos, Z drugs or narcotic pain medications given patient's hx of heavy benzo use and desire for "quick fix" medications -Please make referral to outpatient psychiatry. He already has a therapist. Procedure(s): [facility] [address] [place] [address] IMAGING REPORT Signed PATIENT: SAFIA CAO MR#: [id number] : 1980 SEX: M AGE: 44 LOCATION: [facility] ORDER 37 STATUS: REG ER REPORT#: [id number] SERVICE 36 REASON: cp ORDERING PHYSICIAN: RNOALD SANDOVAL PROCEDURE: CXR1VW - CHEST 1VW EXAM: CR Chest, 1 View. CLINICAL HISTORY: cp COMPARISON: None provided. FINDINGS: LUNGS: The lungs show no infiltrate or other acute finding. PLEURAL SPACES: No pleural effusion or pneumothorax. MEDIASTINUM: Cardiac size and mediastinal contours within normal limits. BONES: No aggressive appearing osseous lesion seen. IMPRESSION: No acute cardiopulmonary pathology is evident. /[place] DICTATED BY: PARKER ESTEBAN MD DATE: 04/25/252009 ELECTRONICALLY SIGNED BY: PARKER ESTEBAN MD DATE: 04/25/252009 Assessment/Plan: ASSESSMENT: Sedative hypnotic depencence and post-acute withdrawal Anxiety w/ panic attacks Nicotine dependence Cannabis abuse ADHD on Adderall Admission Date: 04/25/2025 Discharge Date: 04/27/2025 Disposition: Home Condition: Stable Activity: As tolerated Home medications: Continued Discharge medications: Buspirone HCl 10 Mg Tablet, Gabapentin 100 Mg Capsule, Trazodone HCl 50 Mg Tablet Follow-up appointment: Follow up with your PCP within 2-3 days of discharge Follow up with Psychiatrist within 1-2 weeks of discharge We reinforced the importance of medication adherence and follow-up appointments. Discharge Instructions: Try relaxation activities such as walking, stretching, light exercise, or listening to calm music Maintain a regular sleep schedule Limit caffeine (coffee, energy drinks, soda) as it can worsen anxious symptoms Take prescribed anxiety medications exactly as directed Do not stop or change doses without speaking dear Some medications may take days to weeks to work -this is normal Avoid alcohol or recreational drugs as they can worsen anxiety and interact with medications Follow up with your primary care provider within 2-3 days of discharge Follow up with a psychiatrist within 1-2 weeks of discharge Call 911 or go to ER if you experience severe anxiety or panic that does not improve with coping strategies, thoughts of harming herself or others, sudden worsening confusion, agitation, or inability to function or if you develop fever, severe abdominal pain or bloating, nausea or vomiting that does not improve, sudden shortness of breath or chest pain. Home Medications: Active Scripts Trazodone HCl (Trazodone HCl) 50 Mg Tablet, 1 TAB PO HS for 30 Days, #30 TAB 0 Refills Prov:ASHLEY CALLOWAY MD 04/27/25 Buspirone HCl (Buspirone HCl) 10 Mg Tablet, 1 TAB PO TID for 30 Days, #90 TAB 0 Refills Prov:ASHLEY CALLOWAY MD 04/27/25 Gabapentin (Gabapentin) 100 Mg Capsule, 300 MG PO TID for 30 Days, #270 CAP Prov:ASHLEY CALLOWAY MD 04/27/25 Discontinued Reported Medications Dextroamphetamine/Amphetamine (Dextroamp-Amphet ER 30 mg Cap) 30 Mg Cap.er.24h, 30 MG PO BID PRN for AGITATION, CAPSULE. 11/04/22 Clonazepam (Clonazepam) 1 Mg Tablet, 1 MG PO TIDP PRN for ANXIETY/AGITATION, TAB 11/04/22 Discontinued Scripts Doxycycline Hyclate (Doxycycline Hyclate) 100 Mg Capsule, 100 MG PO BID, #10 CAP Prov:ÁNGEL CRUZP 11/06/22 Lisinopril (Lisinopril) 10 Mg Tablet, 10 MG PO DAILY, #30 TAB 0 Refills Prov:ÁNGEL CRUZ TACTICAL AIR CONTROL PARTY MANAGER 11/06/22 Famotidine (Famotidine) 20 Mg Tablet, 20 MG PO BID, #30 TAB Prov:ÁNGEL CRUZ [employer]ICAL [employer] PARTY MANAGER 11/06/22 Aspirin (ASPIRIN 81MG CHEW TAB) 81 Mg Tab.chew, 81 MG PO DAILY, #30 TAB.CHEW Prov:ÁNGEL CRUZ [employer]ICAL [employer] CONTR[employer] PARTY MANAGER 11/06/22 Ibuprofen (Motrin/Advil) 800 Mg Tab, 800 MG PO TID, #30 TAB Prov:EHMANT DRMUMOND MD 11/04/22 New Medications: Buspirone HCl (Buspirone HCl) 10 Mg Tablet 1 TAB PO TID for 30 Days, #90 TAB 0 Refills Gabapentin (Gabapentin) 100 Mg Capsule 300 MG PO TID for 30 Days, #270 CAP Trazodone HCl (Trazodone HCl) 50 Mg Tablet 1 TAB PO HS for 30 Days, #30 TAB 0 Refills Discontinued Medications: Clonazepam (Clonazepam) 1 Mg Tablet 1 MG PO TIDP PRN for ANXIETY/AGITATION, TAB Dextroamphetamine/Amphetamine (Dextroamp-Amphet ER 30 mg Cap) 30 Mg Cap.er.24h 30 MG PO BID PRN for AGITATION, CAPSULE.DR Time spent arranging discharge: 31-60 minutes ATTESTATION BY PHYSICIAN I have seen and examined the patient. I reviewed the documentation, medical decision making, and treatment plan as noted by the resident physician above. I agree with the findings and plan of care. Jakub Mitchell IV, MD, ABHINAV MD Apr 27, 2025 14:21
== END 2025-04-27 17:45 | disposition home or self-care (01) | DRG 897 ==
LOC: EDH 16:37 → EDHIP 16:38 → 4BH 04-26 13:10
PROVIDERS: ADMIT Internal Medicine; ATTEND Internal Medicine
DX: F13.20 Sedative, hypnotic or anxiolytic dependence, uncomplicated (principal); Z51.5 Encounter for palliative care; F12.10 Cannabis abuse, uncomplicated; F41.0 Panic disorder [episodic paroxysmal anxiety]; F90.9 Attention-deficit hyperactivity disorder, unspecified type; G47.00 Insomnia, unspecified; F17.200 Nicotine dependence, unspecified, uncomplicated; Z79.899 Other long term (current) drug therapy
CPT/HCPCS: 36415; 71045; 80048; 80076; 80305; 81001; 82550; 83735; 84100; 84484; 85025; 85027; 93005; 99285; G0378; J1650; J2270; J2405

== ENCOUNTER 2025-04-27 21:02 | Emergency (ER) | payer SELFPAY ==
[~2025-04-27] VITALS: Ht 188 cm; Wt 84.8 kg
[2025-04-27 21:03] VITALS: BP 161/95; PULSE 90; RESP 20; TEMP 96.5
--- NOTE | 2025-04-27 22:12 | ERN ---
General Chief Complaint: Headache Stated Complaint: C/O HEADACHE, ABD PAIN,NAUSEA Time Seen by MD: 21:20 Time Seen by Midlevel: 21:20 Source: patient History of Present Illness Initial Comments The patient is a 44-year-old male with a past medical history of anxiety presenting to the emergency department for evaluation of a headache. The patient was seen in our emergency department three days ago and was admitted for intractable anxiety. He was ultimately discharged with a benign workup and was started on several medications. 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 Allergies: Coded Allergies: No Known Drug Allergies (Unverified Allergy, Unknown, 11/04/22) Home Meds Active Scripts Trazodone HCl (Trazodone HCl) 50 Mg Tablet, 1 TAB PO HS for 30 Days, #30 TAB 0 Refills Prov:ASHLEY CALLOWAY MD 04/27/25 Buspirone HCl (Buspirone HCl) 10 Mg Tablet, 1 TAB PO TID for 30 Days, #90 TAB 0 Refills Prov:ASHLEY CALLOWAY MD 04/27/25 Gabapentin (Gabapentin) 100 Mg Capsule, 300 MG PO TID for 30 Days, #270 CAP Prov:ASHLEY CALLOWAY MD 04/27/25 Discontinued Reported Medications Dextroamphetamine/Amphetamine (Dextroamp-Amphet ER 30 mg Cap) 30 Mg Cap.er.24h, 30 MG PO BID PRN for AGITATION, CAPSULE.DR 11/04/22 Clonazepam (Clonazepam) 1 Mg Tablet, 1 MG PO TIDP PRN for ANXIETY/AGITATION, TAB 11/04/22 Discontinued Scripts Doxycycline Hyclate (Doxycycline Hyclate) 100 Mg Capsule, 100 MG PO BID, #10 CAP Prov:ÁNGEL CRUZ [facility] 11/06/22 Lisinopril (Lisinopril) 10 Mg Tablet, 10 MG PO DAILY, #30 TAB 0 Refills Prov:ÁNGEL CRUZ [employer]IBERGLASS PIPE COVERING SUPERVISOR 11/06/22 Famotidine (Famotidine) 20 Mg Tablet, 20 MG PO BID, #30 TAB Prov:ÁNGEL CRUZ [employer]ERGL[employer] PIPE COVERING SUPERVISOR 11/06/22 Aspirin (ASPIRIN 81MG CHEW TAB) 81 Mg Tab.chew, 81 MG PO DAILY, #30 TAB.CHEW Prov:ÁNGEL CRUZ [employer]ERGL[employer] PIPE COVERING SUPERVISOR 11/06/22 Ibuprofen (Motrin/Advil) 800 Mg Tab, 800 MG PO TID, #30 TAB Prov:HEMANT DRUMMOND MD 11/04/22 Past Medical History Past Medical History: Hypertension Medical History Other: ADD Past Surgical History: Unknown Family History Family History: Negative Social History Social History: Negative, Lives with family ROS Dictation CONSTITUTIONAL: Negative except for HPI HEAD/FACE: Negative except for HPI EENT: Negative except for HPI RESPIRATORY: Negative except for HPI GASTROINTESTINAL/ABDOMINAL: Negative except for HPI GENITOURINARY: Negative except for HPI MUSCULOSKELETAL: Negative except for HPI INTEGUMENTARY: Negative except for HPI NEUROLOGICAL/PSYCH: Negative except for HPI HEMATOLOGIC/LYMPHATIC: Negative except for HPI All Systems Negative, Except as noted above. 13 point review of systems assessed and all negative except for above. Physical Exam Physical Exam Dictation Vital Signs reviewed General Appearance: Alert, oriented x 3, no acute distress, well developed, nourished. Head and Face: non-traumatic. Eyes: PERRL, pink conjunctivas, eyelid no trauma, anterior chamber with arcus senilis. Ears: Pinnas intact and no signs of trauma or erythema ear canals clear and no discharge TM no erythema Nose: No discharge, no bleeding. Oropharynx: Mouth normal, tongue pink, pharynx clear,no erythema, tonsils no exudates, no abscesses noted, mucous membrane moist Neck: Supple, non-tender, no thyromegaly, no masses, no JVD, no bruits Breast:Deferred Chest:No tenderness, no crepitus, no paradoxical movement, no retractions Lungs:Clear, well-ventilated, symmetric, no rales, no wheezing, no rhonchi, no stridor, good breath sounds bilaterally Heart: Regular rate, regular rhythm, no murmur, no gallops Vascular: no peripheral edema, Abdomen: Soft, positive bowel sounds, nondistended, no guarding, nontender, no rebound, no masses no hepatomegaly, no splenomegaly, no Llanos's sign, no hernias. Rectal: Deferred Genital: Deferred Neurological: Normal speech, motor function intact, sensory function intact Musculoskeletal: Neck nontender, full range of motion, back nontender, full range of motion, Extremities: nontender, full range of motion Skin: Color pink, dry, no turgor, no rash, no lacerations, no abrasions, no contusions. Lymphatic: Deferred MDM MDM: Differential diagnosis: Anxiety, headache, malingering There are no social concerns with this patient. Prescription drug management Prescriptions will include: None Medical management and examination interpretation discussions were had by me with other qualified healthcare professionals as indicated for the patient's care. ED Course Orders Procedure Category Date Status Time Ketorolac PHA 04/27/25 Complete Tromethamine 30mg/Ml 22:00 12 Lead Ekg Tracing- EKG 04/27/25 Resulted Technical 21:31 Current Medications Medications (Trade) Dose Ordered Sig/Meryl Route PRN Reason Start Time Stop Time Status Last Admin Dose Admin Ketorolac Tromethamine (toRADol) 30 mg ONCE ONCE IM 04/27/25 22:00 04/27/25 22:01 DC 04/27/25 22:02 Vital Signs Date Time Temp Pulse Resp B/P (MAP) Pulse Ox O2 Delivery O2 Flow Rate FiO2 04/27/25 21:03 96.4 90 20 161/95 99 Room Air DX & DISP Disposition: Discharge Departure Impression: Primary Impression: Headache, unspecified Additional Impression: Anxiety Condition: Stable Additional Instructions: You need to follow up with your primary care doctor. Referrals: SELF,REFERRAL (PCP) I have reviewed the case, and I agree with, Diagnosis and Plan I performed the substantive portion of the visit. I have reviewed and personally made and approve the management plan that is documented in the note by myself or the FRANCHESKA. I acknowledge for responsibility for the patient's management plan. RONALD SANDOVAL PAC Apr 27, 2025 22:12
--- NOTE | 2025-04-28 07:06 | EKG ---
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
== END 2025-04-27 22:30 | disposition home or self-care (01) ==
LOC: EDH 21:02
DX: R51.9 Headache, unspecified (principal); F41.9 Anxiety disorder, unspecified; Z79.1 Long term (current) use of non-steroidal anti-inflammatories (NSAID); I10 Essential (primary) hypertension; Z79.82 Long term (current) use of aspirin; Z79.899 Other long term (current) drug therapy
CPT/HCPCS: 99283; 96372; 93005; J1885

== ENCOUNTER 2025-04-28 09:08 | Emergency (ER) | payer SELFPAY ==
[~2025-04-28] VITALS: Ht 188 cm; Wt 81.6 kg
--- NOTE | 2025-04-28 09:10 | NUR ---
PATIENT IN ROOM
--- NOTE | 2025-04-28 09:24 | NUR ---
PATIENT ON 1 L OF NC DUE TO PATIENT FEELING SHORT OF BREATH. PT'S OXYGEN SATURATION IS 97%.
[2025-04-28 09:44] LABS: IMMATURE GRANULOCYTE ABSOLUTE 0.01 K/uL (0-1); NUCLEATED RED BLOOD CELLS 0.0 % (0.0-0.19); PLATELET COUNT (AUTO) 304 K/uL (130-400); RED BLOOD CELL COUNT(AUTO) 4.84 MIL/uL (4.50-6.20); RED CELL DISTRIBUTION WIDTH 12.6 % (11.0-15.5); WHITE BLOOD COUNT (AUTO) 5.7 K/uL (4.8-10.8)
[2025-04-28 09:53] LABS: CREATININE 1.0 mg/dL (0.5-1.3); GLOMERULAR FILTR. RATE CALC 95.0 mL/min (>90); GLUCOSE,RANDOM 119.0 mg/dL (70-105); SODIUM SERUM 139.0 mmol/L (136-145); UREA NITROGEN, BLOOD 8.0 mg/dL (7-18)
--- NOTE | 2025-04-28 09:55 | HMCIMG ---
EXAM: CR Chest, 1 View. CLINICAL HISTORY: Cp (Hx) / cp (DICOM Hx) (DICOM Hx). Chest pain. COMPARISON: None provided. FINDINGS: LUNGS: There is no mass, infiltrate, or acute pulmonary abnormality. PLEURAL SPACES: No pleural effusion or pneumothorax. MEDIASTINUM: The cardiomediastinal silhouette is within normal limits. BONES: No aggressive appearing osseous lesion seen. IMPRESSION: No acute cardiopulmonary pathology is evident. /[place]
[2025-04-28 09:57] LABS: ASPARTATE AMINOTRANSFERASE 11.0 U/L (10-37); CREATINE KINASE, TOTAL 77.0 U/L (21-232); TOTAL PROTEIN, SERUM 6.9 g/dL (6.0-8.3)
--- NOTE | 2025-04-28 12:16 | ERN ---
ED Note History of Present Illness Stated Complaint: CP Chief Complaint: Chest Pain Time Seen by MD: 09:11 Dictation: 44-year-old male presenting to the emergency department with intermittent chest pain, patient reports he has been feeling anxious after his doctor stopped his clonazepam medication. Patient denies any abdominal pain or vomiting. No loss of consciousness. Allergies: Coded Allergies: No Known Drug Allergies (Unverified Allergy, Unknown, 11/04/22) Home Meds Active Scripts Trazodone HCl (Trazodone HCl) 50 Mg Tablet, 1 TAB PO HS for 30 Days, #30 TAB 0 Refills Prov:ASHLEY CALLOWAY MD 04/27/25 Buspirone HCl (Buspirone HCl) 10 Mg Tablet, 1 TAB PO TID for 30 Days, #90 TAB 0 Refills Prov:ASHLEY CALLOWAY MD 04/27/25 Gabapentin (Gabapentin) 100 Mg Capsule, 300 MG PO TID for 30 Days, #270 CAP Prov:ASHLEY CALLOWAY MD 04/27/25 Discontinued Reported Medications Dextroamphetamine/Amphetamine (Dextroamp-Amphet ER 30 mg Cap) 30 Mg Cap.er.24h, 30 MG PO BID PRN for AGITATION, CAPSULE.DR 11/04/22 Clonazepam (Clonazepam) 1 Mg Tablet, 1 MG PO TIDP PRN for ANXIETY/AGITATION, TAB 11/04/22 Discontinued Scripts Doxycycline Hyclate (Doxycycline Hyclate) 100 Mg Capsule, 100 MG PO BID, #10 CAP Prov:ÁNGEL CRUZ [facility] 11/06/22 Lisinopril (Lisinopril) 10 Mg Tablet, 10 MG PO DAILY, #30 TAB 0 Refills Prov:ÁNGEL CRUZ [employer] 11/06/22 Famotidine (Famotidine) 20 Mg Tablet, 20 MG PO BID, #30 TAB Prov:ÁNGEL CRUZ [facility] 11/06/22 Aspirin (ASPIRIN 81MG CHEW TAB) 81 Mg Tab.chew, 81 MG PO DAILY, #30 TAB.CHEW Prov:ÁNGEL CRUZ [facility] 11/06/22 Ibuprofen (Motrin/Advil) 800 Mg Tab, 800 MG PO TID, #30 TAB Prov:HEMANT DRUMMOND MD 11/04/22 Past Medical History Past Medical History: Anxiety, Depression Additional Past Medical Hx: ADD Surgical History: Cholecystectomy Family History: Negative Social History: Negative, Lives with family Review of System Dictation Constitutional: Negative for fever,chills, and weight loss Eyes: Negative for injury, pain,redness, and discharge ENT: Negative for injury,pain or swelling Cardiovascular: Per HPI Respiratory: Negative for shortness of breath, cough, and wheezing, Abdomen/GI: Negative for abdominal pain, nausea, vomiting, diarrhea, and constipation Back: Negative for injury and pain : Negative for injury, bleeding and discharge MS/Extremity: Negative for injury and deformity Skin: Negative for rash, and discoloration Neuro: Negative for headache, weakness, numbness, tingling, and seizure Psych: Per HPI Initial Vital Sign VS Vital Signs Date Time Temp Pulse Resp B/P (MAP) Pulse Ox O2 Delivery O2 Flow Rate FiO2 04/28/25 09:09 98.1 75 16 124/83 99 Room Air 0 04/28/25 09:10 21 Physical Exam Dictation General: awake, alert, NAD Head/Face: Normocephalic, atraumatic Eyes: PERRL, EOMI, vision at baseline ENT: oral cavity clear, TMs clear, no signs of infection Neck: Trachea midline, supple, no nuchal rigidity Cardiovascular: RRR, normal S1/S2, No MRGs, no JVD Respiratory: CTAB, no respiratory distress, No rales or wheezes Abdomen: Soft, non-tender, non-distended, normal bowel sounds, no guarding or rebound. Skin: Warm, dry, normal turgor, no rash MS/Extremity: Pulses equal, no cyanosis, neurovascular intact, FROM Neuro: COAx4, GCS 15, strength 5/5, CN 2-12 intact, normal cerebellar exam, normal gait, Psych: Normal behavior, mood, and affect normal Results (Laboratory/Radiology) Laboratory/Radiology Laboratory Tests Test 04/28/25 09:28 White Blood Count 5.7 K/uL (4.8-10.8) Red Blood Count 4.84 MIL/uL (4.50-6.20) Hemoglobin 14.5 g/dL (14.0-18.0) Hematocrit 43.6 % (42-54) Mean Corpuscular Volume 90.1 fL (79-99) Mean Corpuscular Hemoglobin 30.0 pg (27.0-33.0) Mean Corpuscular Hemoglobin Concent 33.3 g/dL (32.0-36.0) Red Cell Distribution Width 12.6 % (11.0-15.5) Platelet Count 304 K/uL (130-400) Mean Platelet Volume 10.4 fL (7.5-10.5) Immature Granulocyte % (Auto) 0.2 % (0-1) Neutrophils (%) (Auto) 65.6 % (40.0-77.0) Lymphocytes (%) (Auto) 25.7 % (21.0-51.0) Monocytes (%) (Auto) 6.1 % (3.0-13.0) Eosinophils (%) (Auto) 2.1 % (0.0-8.0) Basophils (%) (Auto) 0.3 % (0.0-5.0) Neutrophils # (Auto) 3.8 K/uL (1.8-7.7) Lymphocytes # (Auto) 1.5 K/uL (1.0-4.8) Monocytes # (Auto) 0.4 K/uL (0.1-1.0) Eosinophils # (Auto) 0.12 K/uL (0.00-0.70) Basophils # (Auto) 0.02 K/uL (0.00-0.20) Absolute Immature Granulocyte (auto 0.01 K/uL (0-1) Nucleated Red Blood Cells 0.0 % (0.0-0.19) Sodium Level 139 mmol/L (136-145) Potassium Level 3.4 mmol/L (3.5-5.1) L Chloride Level 101 mmol/L (101-111) Carbon Dioxide Level 29 mmol/L (21-32) Blood Urea Nitrogen 8 mg/dL (7-18) Creatinine 1.0 mg/dL (0.5-1.3) Glomerular Filtration Rate Calc 95 mL/min (>90) Random Glucose 119 mg/dL (70-105) H Total Calcium 9.1 mg/dL (8.5-10.1) Total Bilirubin 0.3 mg/dL (0.2-1.0) Direct Bilirubin 0.1 mg/dL (0.0-0.3) Aspartate Amino Transf (AST/SGOT) 11 U/L (10-37) Alanine Aminotransferase (ALT/SGPT) 22 U/L (12-78) Alkaline Phosphatase 80 U/L (50-136) Total Creatine Kinase 77 U/L (21-232) # Troponin I High Sensitivity 6 ng/L (4-75) Total Protein 6.9 g/dL (6.0-8.3) Albumin 4.0 g/dL (3.5-5.0) Labs Reviewed?: Yes EKG: (+) NSR, (+) rhythm, (+) nonspecific ST T wave chg, (+) nonspecific ST T wave chg ED Course ED Course Orders Procedure Category Date Status Time 12 Lead Ekg Tracing- EKG 04/28/25 Logged Technical 09:12 Basic Metabolic Panel LAB 04/28/25 Complete 09:12 Cbc With Differential LAB 04/28/25 Complete 09:12 Creatine Kinase, Total LAB 04/28/25 Complete 09:12 Hepatic Function Panel LAB 04/28/25 Complete 09:12 Troponin I High LAB 04/28/25 Complete Sensitivity 09:12 Chest 1vw RAD 04/28/25 Resulted 09:12 Diazepam 5 Mg/Ml 2 Ml PHA 04/28/25 Complete Syg (Valium 5 Mg/M 09:50 Current Medications Medications (Trade) Dose Ordered Sig/Meryl Route PRN Reason Start Time Stop Time Status Last Admin Dose Admin Diazepam (VALium 5 MG/ML 2 ML SYG) 5 mg ONCE STAT IVP 04/28/25 09:50 04/28/25 09:54 DC 04/28/25 10:06 Vital Signs Date Time Temp Pulse Resp B/P (MAP) Pulse Ox O2 Delivery O2 Flow Rate FiO2 04/28/25 09:10 98.1 75 16 124/83 99 Room Air* 0 21 04/28/25 09:09 98.1 75 16 124/83 99 Room Air 0 Medical Decision Making MDM MDM: Differential diagnosis: Rationale: Tests considered and ordered secondary to shared decision making include: Previous outside records reviewed: Old ER visits. Risk of complication and/or morbidity or mortality of patient management: None Medications-Per medication reconciliation Need for hospitalization: Patient does not meet criteria for hospitalization. Need for emergency major/minor surgery: No There are no social concerns with this patient. Prescription drug management Prescriptions will include symptomatic care Patient's prior external medical records from other ER visits were reviewed by me as indicated. Prior testing and results from previous visits were reviewed. Prior tests were taken into account with medical decision making and resource utilization, independent historian/historians were used to obtain complete medical history. I independently interpreted the test that were performed, results were reviewed by me and considered findings on radiology if ordered. Medical management and examination interpretation discussions were had by me with other qualified healthcare professionals as indicated for the patient's care. 44-year-old male with chest pain, heart score one, stable exam negative workup stable for discharge. DX & DISP Disposition: Discharge Departure Impression: Primary Impression: Anxiety Additional Impression: CHEST PAIN, UNSPECIFIED Condition: Stable Referrals: BRITTANIE GOSS MD (PCP) LAVERNE PHILLIPS MD Time of Disposition: 12:16 NICOLE RODRIGUEZ MD Apr 28, 2025 12:16
[2025-04-28 12:45] VITALS: BP 159/98; PULSE 78; RESP 14; TEMP 98.1; O2SAT 100
--- NOTE | 2025-04-28 12:46 | NUR ---
DISCHARGE: PATIENT IS ALERT AND ORIENTED X4. PT LEFT WALKING WITH A BALANCE AND STEADY STATE. PT STATED "I FELT BETTER THAN WHEN I CAME IN" PATIENT WAS EDUCATED TO RETURN TO THE ER IF SYMPTOMS CAME BACK.
--- NOTE | 2025-04-28 14:11 | EKG ---
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
== END 2025-04-28 12:49 | disposition home or self-care (01) ==
LOC: EDH 09:08
DX: F41.9 Anxiety disorder, unspecified (principal); R07.9 Chest pain, unspecified; F32.A Depression, unspecified; Z79.1 Long term (current) use of non-steroidal anti-inflammatories (NSAID); Z79.899 Other long term (current) drug therapy; Z79.82 Long term (current) use of aspirin; Z90.49 Acquired absence of other specified parts of digestive tract
CPT/HCPCS: 99285; 96374; 71045; 82550; 80076; 84484; 80048; 85025; 36415; 93005; J3360